=== PATIENT | female | born 2000 | race Caucasian/White ===

== ENCOUNTER 2023-08-01 01:15 | Emergency (ER) | payer OTHER ==
[~2023-08-01] VITALS: Ht 170.2 cm; Wt 59.0 kg
[2023-08-01 01:20] VITALS: BP_SYST 144; PULSE 89; RESP 24; TEMP 98; O2SAT 98
[2023-08-01 03:31] VITALS: BP_SYST 130; PULSE 82; RESP 18; TEMP 97.9; O2SAT 99
== END 2023-08-01 03:26 | disposition home or self-care (01) ==
LOC: SED 01:15
DX: T14.8XXA Other injury of unspecified body region, initial encounter (principal); V49.88XA Car occupant (driver) (passenger) injured in other specified transport accidents, initial encounter; Y93.89 Activity, other specified; Y92.488 Other paved roadways as the place of occurrence of the external cause; Y99.8 Other external cause status
CPT/HCPCS: 70450-TC; 72125-TC; 99284